=== PATIENT | male | born 1995 | race Caucasian/White ===

== ENCOUNTER 2019-06-29 21:29 | Emergency (ER) | payer BC, OTHER ==
[2019-06-29] MEDS ORDERED: Ketorolac Tromethamine 30 MG/ML VIAL ONE (21:50)
[2019-06-29] MEDS ORDERED: Acetaminophen 325 MG TAB ONE (21:50)
--- NOTE | 2019-06-29 22:40 | ULT ---
Scrotal sonogram with duplex evaluation HISTORY: Testicular pain. FINDINGS: The right testicle is 4.6 cm length and the left 4.4 cm. Each has a normal sonographic appe arance with good color and spectral Doppler flow. IMPRESSION : No evidence of testicular mass or torsion.
== END 2019-06-29 23:25 | disposition home or self-care (01) ==
LOC: ERS 21:29
DX: N50.812 Left testicular pain (principal); N50.811 Right testicular pain
CPT/HCPCS: 76870; 93976; 96372; J1885